=== PATIENT | male | born 1940 | race Caucasian/White ===

== ENCOUNTER 2018-02-24 11:59 | Observation (INO) | payer MEDICARE ==
[2018-02-24] VITALS (10 sets, daily range): BP systolic 103–144; BP diastolic 51–85; Ht 172.7 cm; Wt 78.6 kg
[~2018-02-24] VITALS: Ht 172.7 cm; Wt 78.6 kg
--- NOTE | ~2018-02-24 | HEMODYNAMI ---
PATIENT:ORA CHUA MEDICAL RECORD: [id number] : 44 LOCATION[facility] [id number] ADMISSION DATE: 02/24/18 Generatedon:02/25/20189:46 Patient name: ORA CHUA Patient #: [id number] SSN: : 1940 Date of study: 02/25/2018 Page: Of Hemodynamic Procedure Report Patient Data Patient Demographics Procedure consent was obtained First Name: ORA Gender: Male Last Name: HARSHIL : 1940 Patient #: [id number] Age: 78 year(s) Race: Unknown Additional ID: [id number] Contact details [address]: [address] [place] [address] State: [place] City: [place] Zip code: [address] Past Medical History Allergies: No known allergies Admission Admission Data Admission Date: 02/24/2018 Admission Time: 14:35 Room #: [facility] Procedure Procedure Types Cath Procedure Diagnostic Procedure LHC LHC w/Coronaries Sedation Charges Moderate Sedation up to 15 minutes Peripheral Cath Diagnostic Procedure Maintenance Team Member Peripheral Procedures Four Vessel Arteriogram Procedure Description Procedure Date Procedure Date: 02/25/2018 Procedure Start Time: 9:36 Procedure End Time: 9:46 Procedure Staff Name Function Rangel Mcdermott MD Performing Physician Radha Valenzuela RT Monitor Camelia He RN Nurse Stephania Lezama RT Scrub Renita Kramer RN Desktop Support Technician Procedure Data Cath Procedure Fluoroscopy Diagnostic fluoroscopy Total fluoroscopy Time: 1.9 time: 1.9 min min Diagnostic fluoroscopy Total fluoroscopy dose: 563 dose: 563 mGy mGy Contrast Material Contrast Material Type Amount (ml) Isovue 300 92 Entry Location Entry Primary Successful Side Size Upsize Upsize Entry Closure Succes sful Closure Location (Fr) 1 (Fr) 2 (Fr) Remarks Device Remarks Femoral Right 5 Fr Exoseal artery Estimated blood loss: 5 ml Diagnostic catheters Device Type Used For End Catheter Placement MULTIPACK JL 4.0 5Fr Left Coronary catheter Angiography MULTIPACK 3DRC 5Fr Right Coronary catheter Angiography MULTIPACK 3DRC 5Fr Cervical carotid catheter (common) arteriography MULTIPACK 3DRC 5Fr Cervical carotid catheter (common) arteriography MULTIPACK Pigtail 5 Fr LV Angiography catheter Procedure Complications No complications Procedure Medications Medication Administration Route Dosage 0.9% NaCl I.V. 100 ml/hr Oxygen etCO2 Nasal cannula 2 l/min Lidocaine 2% added to field 20 Heparin Flush Bag added to field 2 bags (1000units/500ml NS) Versed I.V. 2 mg Fentanyl I.V. 50 mcg Versed I.V. 2 mg Fentanyl I.V. 25 mcg Hemodynamics Rest Heart Rate: 65 (bpm) Pressure Samples Time Site Value (mmHg) Purpose Heart Use Rate(bpm) 9:42 LV 108/-6,4 EDP 70 Gradients Valve Time Site Site Mean SEP/DFP Peak To Heart Use 1 2 (mmHg) (sec/min) Peak Rate (mmHg) (bpm) Aortic 9:42 LV AO 71 Snapshots Pre Cath Intra NCS Post Cath Vital Signs Time Heart Resp SPO2 etCO2 NIBP (mmHg) Rhythm Pain Sedation Rate (ipm) (%) (mmHg) Status Level (bpm) 9:18:44 60 13 98 31.1 144/65(102) NSR 0 (11) 10(A) , No pain 9:23:02 69 14 97 23 111/59(82) NSR 0 (11) 10(A) , No pain 9:27:14 70 15 96 17.5 117/59(86) NSR 0 (11) 10(A) , No pain 9:31:28 67 13 97 25.8 115/61(87) NSR 0 (11) 10(A) , No pain 9:35:42 68 10 98 20.7 112/57(86) NSR 0 (11) 9(A) , No pain 9:40:00 68 13 96 40 111/47(69) NSR 0 (11) 9(A) , No pain 9:44:14 67 13 97 41 121/54(90) NSR 0 (11) 9(A) , No pain Medications Time Medication Route Dose Verified Delivered Reason Notes Effe ctiveness by by 9:17:48 0.9% NaCl I.V. 100 Rangel Camelia used for ml/hr [facility] He procedure RN 9:17:56 Oxygen etCO2 2 Rangel Camelia used for Nasal l/min [facility] Neri procedure cannula MD [facility] 9:18:03 Lidocaine 2% added 20ml Rangel Multani for local to vial [facility] anesthetic field MD [facility] 9:18:07 Heparin Flush added 2 Rangel Multani used for Bag to bags [facility] procedure (1000units/500ml field MD [facility] NS) 9:27:49 Versed I.V. 2 mg Rangel Garsiaa for [facility] sedation MD [facility] 9:27:56 Fentanyl I.V. 50 Rangel Denise for mcg [facility] He sedation RN 9:35:30 Versed I.V. 2 mg Rangel Denise for [facility] sedation MD [facility] 9:35:35 Fentanyl I.V. 25 Rangel Denise for [facility] He sedation MD SANFORDsupply tech Log Time Note 9:05:44 Radha Valenzuela RT(R) sent for patient. Start room use. 9:06:40 Time tracking: Regular hours (M-F 7:00 - 5:00) 9:06:44 Plan of Care:Hemodynamics will remain stable., Cardiac rhythm will remain stable., Comfort level will be maintained., Respiratory function will remain adequate., Patient/ family verbilizes understanding of procedure., Procedure tolerated without complication., Recovers from procedure without complications.. 9:13:02 Patient received from PCU to CCL 1 Alert and oriented. Tansferred to table in Supine position. 9:13:03 Warm blankets applied, and natalia hugger turned on for patient comfort. 9:13:04 Correct patient and procedure confirmed by team. 9:13:05 Signed procedure consent form obtained from patient. 9:13:06 ECG and BP/O2 sat monitors applied to patient. 9:13:06 Full Disclosure recording started 9:17:31 Vital chart was started 9:17:48 0.9% NaCl 100 ml/hr I.V. was administered by Camelia He RN; used for procedure; 9:17:56 Oxygen 2 l/min etCO2 Nasal cannula was administered by Camelia He RN; used for procedure; 9:18:03 Lidocaine 2% 20ml vial added to field was administered by Rangel Mcdermott MD; for local anesthetic; 9:18:07 Heparin Flush Bag (1000units/500ml NELSON) 2 bags added to field was administered by Rangel Mcdermott MD; used for procedure; 9:20:56 Baseline sample Acquired. 9:20:59 Rhythm: sinus rhythm 9:21:07 H&P Date Dictated: 02/24/2018 Within 30 days and on chart., ER History on chart.. 9:21:09 Pre-procedure instructions explained to patient. 9:21:10 Pre-op teaching completed and patient verbalized understanding. 9:21:11 Family in patients room. 9:21:13 Patient NPO since Midnight. 9:21:20 Patient allergic to No known allergies 9:21:22 Is the patient allergic to Iodine/contrast media? No. 9:21:25 Is patient on blood thinner?Yes 9:21:27 ACC The patient was administered the following blood thiners within the last 24 hours: ACCPlavix 9:21:47 Patient diabetic? No. 9:21:50 Previous problem with sedation/anesthesia? No ? 9:21:52 Snore? Yes 9:21:52 Sleep apnea? Yes 9:21:54 Deviated septum? No 9:21:54 Opens mouth fully? Yes 9:21:55 Sticks out tongue? Yes 9:21:57 Airway obstruction? No ? 9:21:59 Dentures? Yes IN 9:24:25 Pre procedure: right dorsailis pedis pulse 2+ Normal; easily identifiable; not easily obliterated 9:24:27 Patient pain scale 0/10 ?. 9:24:36 IV patent on arrival in left forearm with 0.9% NaCl at O. 9:24:38 Lab results completed and on chart. 9:24:43 Right groin area was prepped with chlora-prep and draped in sterile fashion 9:24:44 Alarms reviewed by R. N. 9:24:45 Sharps counted by scrub and verified by R.N. 9:24:50 Use device set Femoral Dx 9:24:51 ACIST Syringe (44387) opened to sterile field. 9:24:52 Bag Decanter () opened to sterile field. 9:24:52 Medline Cath Pack ([id number]) opened to sterile field. 9:24:53 DIAGNOSTIC WIRE .035 260cm J wire (007121) opened to sterile field. 9:24:54 ACIST Hand Control (62130) opened to sterile field. 9:24:54 ACIST Manifold (19275) opened to sterile field. 9:24:55 DIAGNOSTIC Multipack 5Fr catheter set ([id number]) opened to sterile field. 9:24:55 Tegaderm 4 x 4 (1626W) opened to sterile field. 9:24:56 SHEATH 5FR Hampton ([id number]) opened to sterile field. 9:25:37 Final Timeout: patient, procedure, and site verified with staff and physician. All members of the team are in agreement. 9:25:38 Right groin site verified by team. 9:25:41 Physical assessment completed. ASA score P 2 - A patient with mild systemic disease as per aRngel Mcdermott MD. ::44 Sedation plan: IV Moderate Sedation Medication:Versed, Fentanyl 9:27:49 Versed 2 mg I.V. was administered by Camelia He RN; for sedation; 9:27:56 Fentanyl 50 mcg I.V. was administered by Camelia He RN; for sedation; 9:35:30 Versed 2 mg I.V. was administered by Camelia He RN; for sedation; 9:35:35 Fentanyl 25 mcg I.V. was administered by Camelia He RN; for sedation; 9:36:00 Procedure started. 9:36:03 Local anesthetic to right femoral artery with Lidocaine 2% by Rangel Mcdermott MD.INITIAL ACCESS ONLY 9:36:25 A 5 Fr sheath was inserted into the Right Femoral artery 9:36:47 A MULTIPACK JL 4.0 5Fr catheter was advanced over the wire and used for Left Coronary Angiography. 9:38:32 Catheter removed. 9:39:16 A MULTIPACK 3DRC 5Fr catheter was advanced over the wire and used for Right Coronary Angiography. 9:39:58 A MULTIPACK 3DRC 5Fr catheter was advanced over the wire and used for Cervical carotid (common) arteriography. left 9:40:37 A MULTIPACK 3DRC 5Fr catheter was advanced over the wire and used for Cervical carotid (common) arteriography.right 9:40:44 Catheter removed. 9:40:51 A MULTIPACK Pigtail 5 Fr catheter was advanced over the wire and used for LV Angiography. 9:42:06 LV gram done using LEA 9:42:11 EF : 50 % 9:42:14 Injector settings: Ml/sec: 10, Volume: 20, 9:42:21 Catheter removed. 9:42:23 EXOSEAL 5Fr (EX500) opened to sterile field. 9:42:33 Sheath removed intact; hemostasis achieved with Exoseal to the Right Femoral artery. 9:42:35 Procedure ended.(Physican Out) 9:42:47 Fluoroscopy time 01.90 minutes. 9:42:51 Flurop Dose total: 563 9:42:51 Fluoroscopy dose: 563 mGy 9:42:54 Contrast amount:Isovue 300 92ml. 9:42:56 Sharps counted by scrub and verified by R.N. 9:42:57 Insertion/operative site no bleeding no hematoma. 9:43:00 Post-op/insertion site Right Femoral artery dressed using a 4 x 4 and Tegaderm. 9:43:03 Post right femoral artery:stable, clean and dry 9:43:14 Post Procedure Pulses reassessed and unchanged 9:43:17 Post-procedure physical assessment completed. ASA score P 2 - A patient with mild systemic disease as per Rangel Mcdermott MD. 9:43:19 Post procedure rhythm: unchanged. 9:43:22 Estimated blood loss: 5 ml 9:43:25 Post procedure instruction explained to patient.Patient verbalizes understanding. 9:43:25 Patient needs reinforcement of post procedure teaching. 9:43:38 Procedure type changed to Cath procedure, Diagnostic procedure, LHC, LHC w/Coronaries, Sedation Charges, Moderate Sedation up to 15 minutes, Peripheral Cath Diagnostic Procedure, Maintenance Team Member Peripheral Procedures, Four Vessel Arteriogram 9:43:42 Procedure Complication : No complications 9:43:45 See physician's report for complete and final results. 9:44:03 Procedure and supply charges have been captured, reviewed, submitted and are correct. 9:46:10 Vital chart was stopped 9:46:13 Report given to PCU. 9:46:21 Report given to Pre/Post Procedure Room. 9:46:27 Patient transfered to Pre/Post Procedure Room with Stretcher. 9:46:30 Procedure ended. 9:46:30 Full Disclosure recording stopped 9:46:33 End room use (Document Last) Device Usage Item Name Manufacture Quantity Catalog Hospital Part Current Minimal L ot# / Number Charge Number Stock Stock Serial# Code ACIST [facility] 1 65738 780175 163717 915362 20 Syringe Medical (87441) Systems Inc Bag Microtek 1 2001S 272980 22845 466533 5 Decanter Medical Inc. () Medline Medline 1 [id number] 423174 27639 049393 5 Cath Pack ([id number]) DIAGNOSTIC [facility] 1 995609 843981 709245 435398 30 WIRE .035 260cm J wire (723718) ACIST Hand Acist 1 93818 670645 583802 127032 5 Control Medical (00803) Systems Inc ACIST Acist 1 32782 590595 309069 607185 5 Manifold Medical (84658) Systems Inc DIAGNOSTIC Cardinal 1 [id number] 537015 01529 142648 30 Multipack Health 5Fr catheter set (BU1741) Tegaderm 4 3M 1 1626W 151696 576297 609704 5 x 4 (1626W) SHEATH 5FR Terumo 1 DAD052 933884 106732 311045 5 Hampton (OPU389) MULTIPACK Cardinal 1 593728 5 JL 4.0 5Fr Health catheter MULTIPACK Cardinal 1 350379 5 3DRC 5Fr Health catheter MULTIPACK Cardinal 1 276695 5 Pigtail 5 Health Fr catheter EXOSEAL 5Fr Cardinal 1 EX500 278754 729908 074312 10 (EX500) Health Signature Audit [place] Stage Time Signature Unsigned Intra-Procedure 02/25/2018 Stephania 9:46:51 AM Counts RT(R) Signatures Monitor : Radha Valenzuela RT Signature : Date : Time : [facility] [address] [facility] [place] [address]
[2018-02-24 12:20] LABS: BASOPHILS 0.2 % (0-2); EOSINOPHILS 2.4 % (0-7); HEMATOCRIT 41.7 % (42.0-54.0); HEMOGLOBIN 14.8 g/dL (13.5-17.5); IMMATURE GRANULOCYTES 0.2 % (0-5); LYMPHOCYTES 7.9 % (15-50); MCH 31.9 pg (26.0-34.0); MCHC 35.5 g/dL (31.0-37.0); MCV 89.9 fL (80.0-100.0); MEAN PLATELET VOLUME 9.6 fL (7.4-10.4); MONOCYTES 6.1 % (2-11); NEUTROPHILS 83.2 % (40-80); PLATELET COUNT 166 10x3/uL (130-400); RBC 4.64 10x6/uL (4.20-6.10); RDW 12.7 % (11.5-14.5); WBC 10.7 10x3/uL (4.8-10.8)
[2018-02-24 12:47] LABS: ALBUMIN 3.3 g/dL (3.4-5.0); ALKALINE PHOSPHATASE 116 U/L (46-116); ALT (SGPT) 18 U/L (10-68); BILIRUBIN - TOTAL 1.27 mg/dL (0.2-1.3); CALC OSMOLALITY 282 mosm/kg (275-300); CALCIUM 9.3 mg/dL (8.5-10.1); CARBON DIOXIDE 28.6 mmol/L (21.0-32.0); CHLORIDE - SERUM 104 mmol/L (98-107); CREATININE - SERUM 0.9 mg/dL (0.6-1.3); GLUCOSE 165 mg/dL (74-106); POTASSIUM - SERUM 4.2 mmol/L (3.5-5.1); PROTEIN - SERUM 7.2 g/dL (6.4-8.2); SODIUM 138 mmol/L (136-145); UREA NITROGEN 22 mg/dL (7-18); eGFR NON AFRICAN AMERICAN 87 mL/min (90-120)
[2018-02-24 12:51] LABS: CKMB 1.1 U/L (0.0-3.6); CREATINE KINASE 72 UL (21-232); TROPONIN-I 0.023 ng/mL (0.000-0.060)
--- NOTE | 2018-02-24 12:52 | NUR ---
PATIENT C/O PAIN IN HIS UPPER BACK DESCRIBED SHARP. PATIENT STATES AFTER HE VOMITED HIS STOMACH FELT BETTER. DENIES CP AT THIS TIME.
--- NOTE | 2018-02-24 12:54 | NUR ---
PATIENT REPORTS CP AT THIS TIME. STATES, "THE CHEST PAIN HAS COME BACK, IT FEELS LIKE PRESSURE." EDP NOTIFIED.
--- NOTE | 2018-02-24 13:30 | NUR ---
PATIENT AWAKE AND ALERT, COLOR WNL FOR RACE, RESPIRATIONS EVEN AND UNLABORED. ASSISTED TO HOB, PILLOW, AND BLANKET GIVEN.
--- NOTE | 2018-02-24 14:30 | NUR ---
PATIENT AWAKE AND ALERT. NO NEEDS NOTED. UPDATED ON PLAN OF CARE AND DELAYS IN CARE. WILL CONTINUE TO MONITOR.
--- NOTE | 2018-02-24 15:30 | NUR ---
PATIENT AWAKE AND ALERT. DIMMED LIGHTS FOR COMFORT. NO NEEDS NOTED. UPDATED ON PLAN OF CARE AND DELAYS IN CARE.
--- NOTE | 2018-02-24 16:30 | NUR ---
PATIENT AWAKE AND ALERT, WATCHING TV. NO NEEDS NOTED WILL CONTINUE TO MONITOR.
[2018-02-24 17:09] LABS: CREATINE KINASE 50 UL (21-232); TROPONIN-I 0.016 ng/mL (0.000-0.060)
--- NOTE | 2018-02-24 17:22 | NUR ---
PATIENT GIVEN DIET TRAY, NO NEEDS NOTED. WILL CONTINUE TO MONITOR.
--- NOTE | 2018-02-24 18:30 | NUR ---
PATIENT SITTING THE SIDE OF THE BED EATING [employer] ELLIOTT THAT HIS FAMILY BROUGHT HIM. HE IS AWAKE AND ALERT, NO NEEDS NOTED. UPDATED ON PLAN OF CARE AND ROOM STATUS. WILL CONTINUE TO MONITOR.
--- NOTE | 2018-02-24 19:52 | NUR ---
ROOM READY AT 1950
[2018-02-24] MEDS ORDERED: PLAVIX75 MG PO (20:44)
[2018-02-24] MEDS ORDERED: LEVOXYL200 MCG PO (20:45)
[2018-02-24] MEDS ORDERED: LISINOPRIL10 MG PO (20:45)
[2018-02-24] MEDS ORDERED: BAYER CHEWABLE81 MG PO (20:46)
[2018-02-24 23:00] LABS: CREATINE KINASE 48 UL (21-232); TROPONIN-I 0.029 ng/mL (0.000-0.060)
--- NOTE | 2018-02-24 23:34 | NUR ---
PT ARRIVED VIA W/C FROM ER AT 2000 HRS. NO DISTRESS NOTED. ADMISSION ASSESSMENT, HISTORY AND HOME MED LIST COMPLETED BY 2100 HRS. VSS. SR PER CM HR 88. O2 2LNC. IV TO LAC SL. ALERT AND ORIENTED TO PERSON, PLACE AND TIME. PT CURRENTLY RESTING WITH EYES CLOSED. RESP EVEN AND REGULAR. SR UP X2, CALL LIGHT WITHIN REACH.
--- NOTE | 2018-02-25 02:10 | NUR ---
PT RESTING WITH EYES CLOSED. RESP EVEN AND REGULAR. SR UPX2, CALL LIGHT WITHIN REACH.
[2018-02-25 03:49] VITALS: BP 114/49
--- NOTE | 2018-02-25 04:25 | NUR ---
PT RESTING WITH EYES CLOSED. RESP EVEN AND REGULAR. SR UP X2, CALL LIGHT WITHIN REACH.
[2018-02-25] MEDS ORDERED: NITROSTAT0.4 MG SL (05:53)
[2018-02-25 06:34] LABS: CKMB 0.4 U/L (0.0-3.6); CREATINE KINASE 37 UL (21-232); TROPONIN-I 0.025 ng/mL (0.000-0.060)
--- NOTE | 2018-02-25 06:45 | NUR ---
VSS THROUGHOUT NIGHT. SR PER CM. PT DENIED ANY DISCOMFORT. NEEDS MET; WILL CONTINUE TO MONITOR.
[2018-02-25 08:01] VITALS: BP 115/50
[2018-02-25 08:43] LABS: HEMATOCRIT 36.8 % (42.0-54.0); HEMOGLOBIN 12.8 g/dL (13.5-17.5); MCH 31.3 pg (26.0-34.0); MCHC 34.8 g/dL (31.0-37.0); MEAN PLATELET VOLUME 9.7 fL (7.4-10.4); PLATELET COUNT 150 10x3/uL (130-400); RBC 4.09 10x6/uL (4.20-6.10); RDW 12.6 % (11.5-14.5)
[2018-02-25 08:48] LABS: CALC OSMOLALITY 284 mosm/kg (275-300); CALCIUM 8.6 mg/dL (8.5-10.1); CARBON DIOXIDE 24.3 mmol/L (21.0-32.0); CHLORIDE - SERUM 108 mmol/L (98-107); POTASSIUM - SERUM 4.3 mmol/L (3.5-5.1); SODIUM 141 mmol/L (136-145); UREA NITROGEN 25 mg/dL (7-18); eGFR NON AFRICAN AMERICAN 77 mL/min (90-120)
[2018-02-25 08:49] LABS: GLUCOSE 101 mg/dL (74-106)
[2018-02-25 09:05] LABS: WBC 6.8 10x3/uL (4.8-10.8)
--- NOTE | 2018-02-25 09:18 | NUR ---
CONSENTS SIGNED. PRE-OPS GIVEN. TO MAILROOM COURIER BY BED.
[2018-02-25 09:36] LABS: EOSINOPHILS 3 % (0-7); LYMPHOCYTES 13 % (15-50); MONOCYTES 8 % (2-11); NEUTROPHILS 73 % (40-80); PLATELET ESTIMATE NORMAL
--- NOTE | 2018-02-25 10:13 | NUR ---
HOB IS FLAT, PT SLEEPING, RESP WITH EASE ON O2 AT 2LPM VIA NC. NSR, RATE IS 66, BP IS 92/48. DRESSING TO RIGHT GROIN IS CDI, AREA IS SOFT AND NONTENDER. PEDAL PULSES PALPABLE. CALL LIGHT IN REACH, NO FAMILY AT BEDSIDE.
--- NOTE | 2018-02-25 10:24 | MORECARE ---
CASE MANAGEMENT DISCHARGE SUMMARY PATIENT: ORA CHUA UNIT: [id number] ADM DATE: 02/24/18 AGE: 78 : 42 SEX: M ROOM/BED: D.2117 AUTHOR: LUIS ALFREDO SCHAFER PHYSICIAN: REFERRING PHYSICIAN: FLYNN EISENBERG MD DATE OF SERVICE: 02/25/18 Discharge Plan Patient Name: ORA CHUA [facility] [facility] 1940 Planned Disposition: Home Anticipated Discharge Date: 02/25/18 Discharge Date: Expected LOS: 1 Initial Reviewer: [email or web address] Initial Review Date: 02/25/2018 Generated: 02/25/18 11:23 am Patient Name: ORA CHUA Page [phone] at 1024 All edits/amendments must be made on the electronic document DICTATION DATE: 02/25/18 1023 INSURANCE BILLER: LILA 02/25/18 1023 RPT#: [id number] DC DATE: STATUS: ADM IN [facility] [address] [place] [address] END OF REPORT
--- NOTE | 2018-02-25 10:51 | NUR ---
1020 PT AWAKE, DENIES ANY C/O. DRESSING CDI RIGHT GROIN, AREA IS SOFT AND NONTENDER, PEDAL PULSES PALPABLE. HOB IS FLAT. 1050 ROHINI PO FLUIDS WITH NO C/O. DRESSING TO RIGHT GROIN IS CDI, AREA IS SOFT AND NONTENDER. PEDAL PULSES PALPABLE. PT DENIES ANY C/O. CALL LIGHT IN REACH,
--- NOTE | 2018-02-25 11:06 | NUR ---
DRESSING CDI, PEDAL PULSES PALPBLE. PT IS ALERT AND DENIES ANY C/O. ROHINI PO FLUIDS WITH NO NAUSEA. HOB IS FLAT. CALL LIGHT IN REACH.
--- NOTE | 2018-02-25 11:36 | NUR ---
HOB ELEVATED 30 DEGREES, PO FLUIDS AT BEDSIDE. DRESSING IS CDI TO RIGHT GROIN, AREA IS SOFT AND NONTENDER. PEDAL PULSES PALPABLE. PT DENIES ANY C/O. CALL LIGHT IN REACH.
--- NOTE | 2018-02-25 11:50 | NUR ---
DRESSING CDI TO RIGHT GROIN, AREA IS SOFT AND NONTENDER. PEDAL PULSES PALPABLE. VSS. HOB FULLY ELEVATED. SANDWICH SERVED.
--- NOTE | 2018-02-25 12:20 | NUR ---
PT HAS ROHINI SANDWCIH WITH NO C/O NAUSEA. DRESSING REMAINS CDI TO RIGHT GROIN. PT REQUESTED URINAL AND WHEN ITH WAS BROUGHT INTO ROOM, PT WAS SEATED ON SIDE OF THE BED URINATING TOWARD TRASHCAN AND ALL OVER THE FLOOR. STATES HE IS UNABLE TO 'HOLD IT'. AREA CLEANED AND PT VOIDED ADDITIONAL 150 CC OF CLEAR YELLOW URINE TO URINAL. PT STATES TO NURSE THAT HE IS UNHAPPY WITH BEING MOVED FROM HIS ROOM ON THE FLOOR TO THE CATH HOLDING AREA AFTER HIS PROCEDURE. STATES IT IS 'BULLSHIT' THAT HIS ROOM WAS CHANGED AND WHEN HE WAS IN THE HOSPITAL FOR STENTS IN [place] HE WAS NOT MOVED TO A DIFFERENT ROOM AND WANTS TO KNOW WHY HE WAS M0VED THIS VISIT. INFORMED LICENSED PROSTHETIST, BRENTON YOUNG OF PT'S CONCERNS AND BRENTON STATES HE WILL SPEAK TO PT.
--- NOTE | 2018-02-25 13:16 | NUR ---
1240 IV DC'D WITH CATH INTACT AND ASSISTED PT WITH DRESSING FOR DC TO HOME. BRENTON YOUNG HERE TO SPEAK WITH PATIENT. PT CALM AND VERBALIZES THAT HE UNDERSTANDS THE ROOM CHANGE AND HAS BEEN HAPPY WITH HIS CARE HERE. 1255 DC INSTRUCTIONS REVIEWED WITH PT AND WRITTEN COPIES PROVIDED. PT DENIES ANY C/O UPON DC. PT'S FAMILY UNABLE TO PICK HIM UP AND THEY CALLED NURSES DESK TO REQUEST CAB BE CALLED FOR PT TRANSPORT HOME. PT ESCORTED TO CAB VIA WC BY NURSE, STATES HAS ALL PERSONAL BELONGINGS AT TIME OF DC TO HOME.
--- NOTE | 2018-02-26 15:01 | HP ---
PATIENT: ORA CHUA MEDICAL RECORD: [id number] ACCOUNT: [id number] LOCATION:[facility] : 44 ADMISSION DATE: 02/24/18 PCP: No PCP HISTORY AND PHYSICAL EXAMINATION HISTORY OF PRESENT ILLNESS: This is a 78-year-old gentleman with a known history of coronary artery disease, status post intervention via Dr. Alvarenga. He has a history of hypertension. Yesterday, at buddhism, had an episode, sounded possible TIA type symptomatology with visual changes, somewhat of amaurosis well as severe chest pain, angina type symptomatology, radiates to the jaw, markedly diaphoretic. We are asked to see him concerning his cardiovascular status. PAST MEDICAL HISTORY: Includes; 1. History of hypertension. 2. Hyperlipidemia. 3. Hypothyroidism, on replacement. ALLERGIES: None known. MEDICATIONS: Typically include Synthroid 200 mcg every day, aspirin 81 every day, lisinopril 10 every day, Plavix 75 every day. SOCIAL HISTORY: Nonsmoker, nondrinker. He usually takes care of all his ADLs. No set exercise program. REVIEW OF SYSTEMS: The patient reports easy bruising but reports no swollen glands. The patient reports no fever, no night sweats, no significant weight gain, no significant weight loss. No significant exercise tolerance. The patient reports no dry eyes, no irritation, no vision change. Patient reports no difficulty hearing and no ear pain. Patient reports no frequent nose bleeds or nose and sinus problems. Patient reports on arm pain on exertion. No shortness of breath while lying down. No history of heart murmur. Patient reports no cough, no wheezing or coughing up blood. Patient reports no abdominal pain, no vomiting. Normal appetite. No diarrhea and not vomiting blood. No nausea and no constipation. Patient reports no incontinence. No difficulty urinating. No hematuria. No increased frequency. Patient reports no muscle aches. No weakness, no arthralgias, no back pain. No swelling of the extremities. Patient reports no abnormal mole, no jaundice, no rashes. Reports no loss of consciousness. No weakness and no numbness. No seizures, dizziness, or headaches. The patient reports no depression, no sleep disturbance, feeling safe in a relationship and no alcohol abuse. Patient reports on fatigue. Reports no runny nose or sinus pressure. No itching, no hives, and no frequent sneezing. PHYSICAL EXAMINATION: GENERAL: Well-developed, well-nourished gentleman appears stated age. VITAL SIGNS: Blood pressure 115/50, pulse 70 and regular. HEENT: Normocephalic, atraumatic. NECK: No JVD or bruit. HEART: Regular, II/ systolic ejection murmur. LUNGS: Good excursion. ABDOMEN: Soft, nontender. EXTREMITIES: Pulse 2+ with no edema. IMPRESSION: Transient ischemic attack type symptomatology as well as HISTORY AND PHYSICAL [id number] ORA CHUA progressive angina. PLAN: Diagnostic angiography, four-vessel in the same setting. TRANSINT:[id number] Voice Confirmation ID: [id number] DOCUMENT ID: [id number] FLYNN EISENBERG MD at 1501 CC: [id number] DICTATION DATE: 02/25/18 0931 SHOE REPAIR SUPERVISOR: 02/25/18 1058 DIS IN 02/25/18 [id number] [place] [address]
--- NOTE | 2018-02-26 15:01 | OP ---
PATIENT NAME: ORA CHUA MEDICAL RECORD: [id number] :44 LOCATION:[facility] ADMISSION DATE:02/24/18 SURGEON: FLYNN EISENBERG MD DATE OF OPERATION: 02/25/2018 PROCEDURES: Left heart catheterization, selective coronary arteriography, four-vessel arteriography, right femoral artery approach. CATHETERS: A 5-Amharic sheath, 5/4 left and right Fiona, 5/4 pig. The procedure was well tolerated. The patient returned to the brewer. Sheath was removed. ExoSeal device was placed. FINDINGS: Left ventriculography in 30-degree LEA view. Normal wall motion, normal systolic function. CORONARY ANATOMY: LEFT MAIN: Left main is free of disease. LAD: Has previous stent, is widely patent. No evidence of thrombosis. No evidence of restenosis. No progression of kaw disease. CIRCUMFLEX: Previously placed stent is widely patent. No evidence of thrombosis. No evidence of progression of kaw disease. RIGHT CORONARY ARTERY: Dominant artery, gives rise to PDA, free of disease. IMPRESSION: The right coronary catheter was then selectively engaged into the right common carotid, shows smooth-walled vessel, free of disease. Right external carotid shows some calcium irregularities, none greater than 10%. Right internal carotid is free of disease. The catheter was just withdrawn to the left common carotid which was selectively engaged, this shows smooth-walled common carotid free of disease. Left external carotid shows luminal irregularities, no stenosis greater than 10%. Left internal carotid shows some calcium deposition with no stenosis greater than 10%. At the end of the procedure, sheath was closed with ExoSeal device. TRANSINT:[id number] Voice Confirmation ID: [id number] DOCUMENT ID: [id number] FLYNN EISENBERG MD at 1501 CC: [id number] DICTATION DATE: 02/25/18 0947 OCCUPATIONAL THERAPIST AIDE: 02/25/18 1303 DIS IN 02/25/18 [place] [id number] [place] [address]
== END 2018-02-25 12:55 | disposition home or self-care (01) ==
LOC: EDBD 11:59 → D.ER 11:59 → D.EDHOLD 13:57 → OBSVTIME 13:57 → D.CLR 13:57 → D.M2 14:35 → D.ER 14:35 → D.CLR 14:35 → D.EDHOLD 14:35 → D.M2 17:42 → D.CLR 02-25 11:41
PROVIDERS: Emergency Medicine; ADMIT Internal Medicine Interventional Cardiology
DX: I25.110 Atherosclerotic heart disease of native coronary artery with unstable angina pectoris (principal); Z95.5 Presence of coronary angioplasty implant and graft; R42 Dizziness and giddiness; H53.9 Unspecified visual disturbance; E03.9 Hypothyroidism, unspecified; E78.5 Hyperlipidemia, unspecified; I10 Essential (primary) hypertension

== ENCOUNTER 2018-07-26 05:33 | Inpatient (IN) | payer MEDICARE ==
[2018-07-26] VITALS (9 sets, daily range): BP systolic 133–167; BP diastolic 51–78; BMI 27.4
[~2018-07-26 05:33] MED LIST: BAYER CHEWABLE81 MG PO; LEVOXYL200 MCG PO; LISINOPRIL10 MG PO; NITROSTAT0.4 MG SL; PLAVIX75 MG PO
[2018-07-26 06:12] LABS: BASOPHILS 0.1 % (0-2); EOSINOPHILS 0.2 % (0-7); HEMATOCRIT 40.3 % (42.0-54.0); HEMOGLOBIN 14.3 g/dL (13.5-17.5); IMMATURE GRANULOCYTES 0.3 % (0-5); LYMPHOCYTES 3.3 % (15-50); MCHC 35.5 g/dL (31.0-37.0); MCV 90.2 fL (80.0-100.0); MEAN PLATELET VOLUME 9.3 fL (7.4-10.4); MONOCYTES 6.5 % (2-11); NEUTROPHILS 89.6 % (40-80); PLATELET COUNT 178 10x3/uL (130-400); RBC 4.47 10x6/uL (4.20-6.10); RDW 13.4 % (11.5-14.5); WBC 9.3 10x3/uL (4.8-10.8)
[2018-07-26 06:18] LABS: ALBUMIN 3.2 g/dL (3.4-5.0); ALKALINE PHOSPHATASE 191 U/L (46-116); ALT (SGPT) 37 U/L (10-68); BILIRUBIN - TOTAL 3.52 mg/dL (0.2-1.3); CALC OSMOLALITY 285 mosm/kg (275-300); CALCIUM 8.8 mg/dL (8.5-10.1); CARBON DIOXIDE 28.7 mmol/L (21.0-32.0); CHLORIDE - SERUM 105 mmol/L (98-107); GLUCOSE 147 mg/dL (74-106); POTASSIUM - SERUM 3.7 mmol/L (3.5-5.1); PROTEIN - SERUM 7.5 g/dL (6.4-8.2); SODIUM 141 mmol/L (136-145); UREA NITROGEN 19 mg/dL (7-18); eGFR NON AFRICAN AMERICAN 77 mL/min (90-120)
[2018-07-26 06:33] LABS: APPEARANCE CLEAR (CLEAR); BILIRUBIN NEGATIVE (NEGATIVE); COLOR DK YELLOW (YELLOW); GLUCOSE NEGATIVE (NEGATIVE); KETONE NEGATIVE (NEGATIVE); NITRITE NEGATIVE (NEGATIVE); PROTEIN TRACE mg/dL (NEGATIVE)
[2018-07-26 06:34] LABS: AMORPHOUS SEDIMENT <1+ /lpf (NONE SEEN); BACTERIA FEW /hpf (NONE SEEN); EPITHELIAL CELLS 0-5 /hpf (0-5); MUCUS <1+ /lpf (NONE SEEN); RED CELLS - URINE RARE /hpf (0-5); WHITE CELLS - URINE 0-5 /hpf (0-5)
[2018-07-26 06:58] LABS: MAGNESIUM - SERUM 1.8 mg/dL (1.8-2.4)
[2018-07-26 06:59] LABS: AMYLASE - SERUM 2890 U/L (25-115)
[2018-07-26 07:10] LABS: LIPASE 58618 U/L (73-393)
--- NOTE | 2018-07-26 07:15 | NUR ---
REPORT RECEIVED FROM TAYLOR [facility] USING SBAR
[2018-07-26 08:54] LABS: CHOL - HDL RATIO 3.3 ratio (2.3-4.9); THYROID STIMULATING HORMONE 0.2 uIU/mL (0.36-3.74)
--- NOTE | 2018-07-26 09:04 | NUR ---
FSBS 89 no insulin given
--- NOTE | 2018-07-26 11:42 | NUR ---
patient coat and shoes taken with him too.
--- NOTE | 2018-07-26 19:00 | NUR ---
REPORT RECEIVED AND CARE OF PT ASSUMED. PT LYING IN LOW CARLISLE'S POSITION WATCHING TV. IV IN RIGHT AC PATENT...BUT OCCLUSION ALARM SOUNDING EVER FEW MINUTES. D5LR INFUISNG AT 125 ML/ HR. PROTONIX INFUSING AT 10 ML / HR. WILL MONITOR FOR NEEDS.
--- NOTE | 2018-07-26 20:20 | NUR ---
SITED ANOTHER IV TO RIGHT HAND AND MOVED IV FLUIDS TO THIS SITE, DUE TO CONSTANT OCCLUSION ALARMS FROM IV IN RIGHT AC. SALINE LOCKED AC IV. WILL CONTINUE TO MONITOR FOR NEEDS.
--- NOTE | 2018-07-26 21:19 | NUR ---
HS MEDICATIONS GIVEN. FSBS 78 THIS CHECK REQUIRING NO COVERAGE PER SLIDING SCALE. PT REMAINS NPO PER ORDER.
[2018-07-27 01:22] VITALS: BP 121/52
[2018-07-27 04:36] LABS: BASOPHILS 0.5 % (0-2); EOSINOPHILS 4.6 % (0-7); HEMATOCRIT 35.5 % (42.0-54.0); HEMOGLOBIN 12.1 g/dL (13.5-17.5); IMMATURE GRANULOCYTES 0.2 % (0-5); LYMPHOCYTES 16.3 % (15-50); MCH 31.4 pg (26.0-34.0); MCHC 34.1 g/dL (31.0-37.0); MEAN PLATELET VOLUME 9.4 fL (7.4-10.4); MONOCYTES 9.8 % (2-11); NEUTROPHILS 68.6 % (40-80); RBC 3.85 10x6/uL (4.20-6.10); RDW 14.1 % (11.5-14.5)
[2018-07-27 04:43] LABS: MCV 92.2 fL (80.0-100.0); WBC 6.1 10x3/uL (4.8-10.8)
[2018-07-27 04:44] LABS: PLATELET COUNT 140 10x3/uL (130-400)
[2018-07-27 04:46] LABS: APTT 30.8 SECONDS (22.8-39.4); INR 1.25 (0.85-1.17); PROTIME 15.1 SECONDS (11.6-15.0)
[2018-07-27 04:59] LABS: ALBUMIN 2.5 g/dL (3.4-5.0); ALKALINE PHOSPHATASE 141 U/L (46-116); ALT (SGPT) 30 U/L (10-68); BILIRUBIN - TOTAL 1.25 mg/dL (0.2-1.3); CALCIUM 8.5 mg/dL (8.5-10.1); CARBON DIOXIDE 27.3 mmol/L (21.0-32.0); CHLORIDE - SERUM 111 mmol/L (98-107); CREATININE - SERUM 0.9 mg/dL (0.6-1.3); LIPASE 991 U/L (73-393); POTASSIUM - SERUM 3.5 mmol/L (3.5-5.1); PROTEIN - SERUM 6.1 g/dL (6.4-8.2); SODIUM 145 mmol/L (136-145); UREA NITROGEN 19 mg/dL (7-18); eGFR NON AFRICAN AMERICAN 87 mL/min (90-120)
[2018-07-27 05:04] LABS: AMYLASE - SERUM 273 U/L (25-115); CALC OSMOLALITY 290 mosm/kg (275-300); GLUCOSE 91 mg/dL (74-106)
[2018-07-27 05:14] VITALS: BP 123/57
[2018-07-27 08:47] VITALS: BP 128/80
[2018-07-27 12:41] VITALS: BP 150/56
[2018-07-27 16:09] LABS: CEA 2.6 ng/mL (0.0-4.7)
--- NOTE | 2018-07-27 16:27 | MORECARE ---
CASE MANAGEMENT DISCHARGE SUMMARY PATIENT: ORA CHUA UNIT: [id number] ADM DATE: 07/26/18 AGE: 78 : 42 SEX: M ROOM/BED: D.2222 AUTHOR: LUIS ALFREDO SCHAFER PHYSICIAN: REFERRING PHYSICIAN: GALEN YOUNG DO DATE OF SERVICE: 07/27/18 Discharge Plan Patient Name: ORA CHUA [facility] [facility] 1940 Planned Disposition: Anticipated Discharge Date: Discharge Date: Expected LOS: Initial Reviewer: [email or web address] Initial Review Date: 07/27/2018 Generated: 07/27/18 5:26 pm DCPIA - Discharge Planning Initial Assessment Updated by [email or web address]: Kathya Mata on 07/27/18 4:26 pm * Is the patient Alert and Oriented? Yes * PCP ID CLINIC AND WANTS TO USE [facility] * Pharmacy [id number] [address] * Preadmission Environment Home with Family * ADLs Independent * Equipment Cane CPAP Walker * List name and contact numbers for known caregivers / representatives who currently or will assist patient after discharge: DAMI AYALA , * Verbal permission to speak to the caregivers and representatives has been obtained from the patient. Yes * Community resources currently utilized None * Additional services required to return to the preadmission environment? No * Can the patient safely return to the preadmission environment? Yes * Has this patient been hospitalized within the prior 30 days at any hospital? No Patient Name: ORA CHUA Page [id number] at 1627 All edits/amendments must be made on the electronic document DICTATION DATE: 07/27/181625 CLAY ARTIST: LILA 07/27/181625 RPT#: [id number] [place] DATE: STATUS: ADM IN [facility] [address] [place] [address] END OF REPORT
--- NOTE | 2018-07-27 16:35 | MORECARE ---
CASE MANAGEMENT DISCHARGE SUMMARY PATIENT: ORA CHUA UNIT: [id number] ADM DATE: 07/26/18 AGE: 78 : 42 SEX: M ROOM/BED: D.2222 AUTHOR: HANH,DOC PHYSICIAN: REFERRING PHYSICIAN: GALEN YOUNG DO DATE OF SERVICE: 07/27/18 Discharge Plan Patient Name: ORA CHUA Facility: [facility]:[place] : 1940 Planned Disposition: Anticipated Discharge Date: Discharge Date: Expected LOS: Initial Reviewer: [email or web address] Initial Review Date: 07/27/2018 Generated: 07/27/18 5:35 pm Comments DCP- Discharge Planning Updated by [email or web address]: Kathya Mata on 07/27/18 3:[address] Patient Name: ORA CHUA Admission Status: ER Accout number: [id number] Admission Date: 07-26-2018 : 1940 Admission Diagnosis: Attending: GALEN YOUNG Current LOS: 1 Anticipated DC Date: Planned Disposition: Primary Insurance: [employer] Discharge Planning Comments: CM MET WITH PATIENT ABOUT DC PLANNING/NEEDS. STATES NO NEEDS AT THIS TIME. PATIENT IS TO HAVE SURGERY SUNDAY. CM WILL FOLLOW AND ASSIST NEEDED WITH DC PLANNING/NEEDS. Erp Business Analyst: Kathya Mata DCPIA - Discharge Planning Initial Assessment Updated by [email or web address]: Kathya Mata on 07/27/18 4:26 pm * Is the patient Alert and Oriented? Yes * PCP CT CLINIC AND WANTS TO USE [facility] * Pharmacy [facility] [address] * Preadmission Environment Home with Family * ADLs Independent * Equipment Cane CPAP Walker * List name and contact numbers for known caregivers / representatives who currently or will assist patient after discharge: DAMI AYALA , * Verbal permission to speak to the caregivers and representatives has been obtained from the patient. Yes * Community resources currently utilized None * Additional services required to return to the preadmission environment? No * Can the patient safely return to the preadmission environment? Yes * Has this patient been hospitalized within the prior 30 days at any hospital? No Last DP export: 07/27/18 3:26 p Patient Name: ORA CHUA Page [id number] at 1635 All edits/amendments must be made on the electronic document DICTATION DATE: 07/27/181633 ENTRY LEVEL PARALEGAL: LILA 07/27/181633 RPT#: [id number] DC DATE: STATUS: ADM IN [facility] [address] [place] [address] END OF REPORT
[2018-07-27 18:07] VITALS: BP 144/67
--- NOTE | 2018-07-27 19:30 | NUR ---
REPORT RECEIVED. RECEIVED PATIENT IN BED. A&O X 4. SPEEC CLEAR. SHIFT ASSESSMENT COMPLETED PER FLOW SHEET WITH NO ACUTE DISTRESS OBSERVED. CALL LIGTH IN REACH. DENIES N/V OR PAIN AT PRESENT.
--- NOTE | 2018-07-27 19:55 | NUR ---
I have reviewed this patient and I concur with the Shift Assessment completed by the Licensed Practical Nurse today this shift.
[2018-07-27 20:00] VITALS: BP 182/75
[2018-07-28] VITALS: BP 178/69
[2018-07-28 04:00] VITALS: BP 168/65
[2018-07-28 05:14] LABS: BASOPHILS 0.3 % (0-2); EOSINOPHILS 7.4 % (0-7); HEMATOCRIT 32.6 % (42.0-54.0); HEMOGLOBIN 11.3 g/dL (13.5-17.5); IMMATURE GRANULOCYTES 0.2 % (0-5); LYMPHOCYTES 17.6 % (15-50); MCH 31.5 pg (26.0-34.0); MCHC 34.7 g/dL (31.0-37.0); MCV 90.8 fL (80.0-100.0); MEAN PLATELET VOLUME 9.6 fL (7.4-10.4); MONOCYTES 8.9 % (2-11); NEUTROPHILS 65.6 % (40-80); PLATELET COUNT 129 10x3/uL (130-400); RBC 3.59 10x6/uL (4.20-6.10); RDW 13.8 % (11.5-14.5); WBC 5.8 10x3/uL (4.8-10.8)
[2018-07-28 05:37] LABS: ALBUMIN 2.3 g/dL (3.4-5.0); ALKALINE PHOSPHATASE 129 U/L (46-116); BILIRUBIN - TOTAL 0.98 mg/dL (0.2-1.3); CALCIUM 8.3 mg/dL (8.5-10.1); CHLORIDE - SERUM 109 mmol/L (98-107); CREATININE - SERUM 0.8 mg/dL (0.6-1.3); GLUCOSE 103 mg/dL (74-106); POTASSIUM - SERUM 3.6 mmol/L (3.5-5.1); PROTEIN - SERUM 5.8 g/dL (6.4-8.2); SODIUM 142 mmol/L (136-145); eGFR NON AFRICAN AMERICAN > 90 mL/min (90-120)
[2018-07-28 05:41] LABS: ALT (SGPT) 21 U/L (10-68); CALC OSMOLALITY 283 mosm/kg (275-300); UREA NITROGEN 14 mg/dL (7-18)
[2018-07-28 08:49] VITALS: BP 154/61
--- NOTE | 2018-07-28 09:00 | NUR ---
PT AAOX4 RESP EVEN ADN NONLABORED NO SIGNS OF DISTRESS NOTED WILL CONTINUE TO MONITOR NO NEEDS EXPRESSED AT THIS TIME CL IN REACH
[2018-07-28 12:39] VITALS: BP 146/70
[2018-07-28 17:55] VITALS: BP 136/79
--- NOTE | 2018-07-28 18:03 | NUR ---
I have reviewed this patient and I concur with the Shift Assessment completed by the Licensed Practical Nurse today this shift.
--- NOTE | 2018-07-28 19:55 | NUR ---
LYING IN BED. ALERT AND ORIENTED X4. RESP EVEN AND NONLABORED. RATES PAIN IN ABD 2. ABD IS DISTENDED AND FIRM. BS ARE ACTIVE X4 QUADS. CHRONOMETER REPAIRER MORPHINE IN USE. D5LR @ 75 MLHR INFUSING IN LT FOREARM WITHOUT DIFF. AMBULATORY. NO DISTRESS. SR ELEVATED X2. CL IN REACH.
[2018-07-28 20:00] VITALS: BP 129/68
--- NOTE | 2018-07-28 21:30 | NUR ---
ADVISED OF NPO AFTER MIDNIGHT STATUS AND PT VERBALIZED UNDERSTANDING.
[2018-07-29] VITALS (7 sets, daily range): BP systolic 130–178; BP diastolic 70–84; BMI 27.3
--- NOTE | 2018-07-29 03:20 | NUR ---
HAS RESTED WELL TONIGHT. LYING IN BED WITH EYES CLOSED. RESP EVEN AND NONLABORED. NO DISTRESS. CL IN REACH.
[2018-07-29 04:15] LABS: BASOPHILS 0.4 % (0-2); EOSINOPHILS 10.8 % (0-7); HEMATOCRIT 32.5 % (42.0-54.0); HEMOGLOBIN 11.5 g/dL (13.5-17.5); IMMATURE GRANULOCYTES 0.4 % (0-5); LYMPHOCYTES 20.5 % (15-50); MCH 31.7 pg (26.0-34.0); MCHC 35.4 g/dL (31.0-37.0); MCV 89.5 fL (80.0-100.0); MEAN PLATELET VOLUME 9.3 fL (7.4-10.4); MONOCYTES 8.3 % (2-11); NEUTROPHILS 59.6 % (40-80); PLATELET COUNT 126 10x3/uL (130-400); RBC 3.63 10x6/uL (4.20-6.10); RDW 13.5 % (11.5-14.5); WBC 4.8 10x3/uL (4.8-10.8)
[2018-07-29 04:39] LABS: ALBUMIN 2.4 g/dL (3.4-5.0); ALKALINE PHOSPHATASE 130 U/L (46-116); ALT (SGPT) 21 U/L (10-68); CALC OSMOLALITY 279 mosm/kg (275-300); CARBON DIOXIDE 25.6 mmol/L (21.0-32.0); CHLORIDE - SERUM 108 mmol/L (98-107); GLUCOSE 91 mg/dL (74-106); LIPASE 211 U/L (73-393); POTASSIUM - SERUM 3.5 mmol/L (3.5-5.1); PROTEIN - SERUM 5.9 g/dL (6.4-8.2); SODIUM 141 mmol/L (136-145); eGFR NON AFRICAN AMERICAN 77 mL/min (90-120)
[2018-07-29 04:52] LABS: AMYLASE - SERUM 47 U/L (25-115); UREA NITROGEN 10 mg/dL (7-18)
[2018-07-29] MEDS ORDERED: HYDROCODON-ACE1 EAC7 PO (15:17)
--- NOTE | 2018-07-29 20:32 | NUR ---
REC'D. IN BED ABD. DISTENDED BUT SOFT AND PALABLE. BOWEL SOUNDS ALL QUAD.FOUR LAP SITES WITH STERI-STRIPS IN PLACE.02 NC AT 6L.NO RESP DIFFICULTY OBSERVED AT PRESENT TIME.STATES NOT PASSING ANY GAS YET WILL CONTINUE TO MONITOR FOR ANY CHGES. AND FOLLOW CURRENT PLAN OF CARE.
--- NOTE | 2018-07-30 03:38 | NUR ---
I have reviewed this patient and I concur with the Shift Assessment completed by the Licensed Practical Nurse today this shift.
[2018-07-30 05:37] LABS: BASOPHILS 0.1 % (0-2); EOSINOPHILS 0 % (0-7); HEMATOCRIT 37.5 % (42.0-54.0); HEMOGLOBIN 13.3 g/dL (13.5-17.5); IMMATURE GRANULOCYTES 0.3 % (0-5); LYMPHOCYTES 3.3 % (15-50); MCHC 35.5 g/dL (31.0-37.0); MCV 90.4 fL (80.0-100.0); MEAN PLATELET VOLUME 9.2 fL (7.4-10.4); MONOCYTES 5.9 % (2-11); NEUTROPHILS 90.4 % (40-80); RBC 4.15 10x6/uL (4.20-6.10); RDW 13.8 % (11.5-14.5)
[2018-07-30 05:52] LABS: PLATELET COUNT 157 10x3/uL (130-400); WBC 14.5 10x3/uL (4.8-10.8)
[2018-07-30 06:04] LABS: ALBUMIN 2.5 g/dL (3.4-5.0); BILIRUBIN - TOTAL 1.5 mg/dL (0.2-1.3); CALCIUM 8.3 mg/dL (8.5-10.1); CARBON DIOXIDE 27.2 mmol/L (21.0-32.0); CREATININE - SERUM 1.1 mg/dL (0.6-1.3); PROTEIN - SERUM 6.4 g/dL (6.4-8.2)
[2018-07-30 06:12] LABS: ANION GAP 11.2 mmol/L (8-16); POTASSIUM - SERUM 4.4 mmol/L (3.5-5.1)
[2018-07-30 06:33] VITALS: BP 157/74
--- NOTE | 2018-07-30 07:30 | NUR ---
SITTING UP AT BEDSIDE. PT IS WITHOUT DISTRESS.CALL LIGHT IN REACH
[2018-07-30] MEDS ORDERED: LEVOFLOXACIN500 MG PO (08:06)
[2018-07-30 08:14] VITALS: BP 146/56
--- NOTE | 2018-07-30 09:09 | NUR ---
ASSESSMENT PER FLOW SHEET. PT IS HAVING SOME SHORTNESS OF BREATH THIS AM. HE STATES HE USES CPAP AT HOME. 02 AT 4 LITERS PER NASAL CANULA WITH SATS 96%. CALL LIGHT IN REACH.
[2018-07-30 09:14] LABS: HEPATITIS C ANTIBODY <0.1 S/CO RAT (0.0-0.9)
[2018-07-30 11:46] VITALS: BP 154/68
--- NOTE | 2018-07-30 12:16 | NUR ---
PT IS WITHOUT DISTRESS.FAMILY TO VISIT. MONITOR FOR NEEDS.
--- NOTE | 2018-07-30 16:15 | NUR ---
AMBULATED IN HALLS WITH ASSIST.
--- NOTE | 2018-07-30 16:44 | NUR ---
IV PULLED OUT WITH CATH TIP INTACT.IV RESITED TO LEFT HAND X1 STICK USING ASEPTIC TECH,22G.
[2018-07-30 17:00] VITALS: BP 183/83
[2018-07-30 20:00] VITALS: BP 140/62
[2018-07-31] VITALS: BP 130/54
--- NOTE | 2018-07-31 02:13 | NUR ---
1930) REC'D. SHIFT CHGE. STANDING AT BEDSIDE USING URINAL STAES HAD MUCH BETTER DAY.ABDOMEN DISTENED SOFT AND PALABLE FOUR LAP SITES WITHOUT REDNESS OR DRAINAGE.HYPOACTIVE BOWEL SOUNDS HYPOACTIVE ALL QUAD.WILL CONTINUE TO MONITOR FOR ANY CHGES AND FOLLOW CURRENT PLAN OF CARE.
--- NOTE | 2018-07-31 03:47 | NUR ---
I have reviewed this patient and I concur with the Shift Assessment completed by the Licensed Practical Nurse today this shift.
[2018-07-31 04:00] VITALS: BP 136/54
[2018-07-31 05:03] LABS: BASOPHILS 0.2 % (0-2); EOSINOPHILS 2.3 % (0-7); HEMATOCRIT 34.6 % (42.0-54.0); HEMOGLOBIN 12.1 g/dL (13.5-17.5); IMMATURE GRANULOCYTES 0.4 % (0-5); LYMPHOCYTES 9.6 % (15-50); MCH 31.8 pg (26.0-34.0); MCV 91.1 fL (80.0-100.0); MEAN PLATELET VOLUME 9.6 fL (7.4-10.4); MONOCYTES 8.8 % (2-11); NEUTROPHILS 78.7 % (40-80); PLATELET COUNT 162 10x3/uL (130-400); RDW 14.2 % (11.5-14.5); WBC 14.6 10x3/uL (4.8-10.8)
[2018-07-31 05:10] LABS: ALBUMIN 2.4 g/dL (3.4-5.0); ANION GAP 11.7 mmol/L (8-16); BILIRUBIN - TOTAL 1.52 mg/dL (0.2-1.3); CALCIUM 8.3 mg/dL (8.5-10.1); CARBON DIOXIDE 26.1 mmol/L (21.0-32.0); CREATININE - SERUM 1.1 mg/dL (0.6-1.3); POTASSIUM - SERUM 3.8 mmol/L (3.5-5.1); PROTEIN - SERUM 6.4 g/dL (6.4-8.2)
[2018-07-31 09:12] VITALS: BP 125/52
[2018-07-31 12:09] VITALS: BP 141/75
--- NOTE | 2018-07-31 12:14 | NUR ---
NUTRITION F/U CHART REVIEWED, PT VISIT. TOLERATING FULL LIQUID DIET WITH GOOD INTAKE RECENT MEALS. WILL CONTINUE TO MONITOR DIET ADVANCEMENT, PO INTAKE. RD FOLLOWING
[2018-07-31 16:22] LABS: APPEARANCE CLEAR (CLEAR); COLOR YELLOW (YELLOW); SPECIFIC GRAVITY 1.015 (1.005-1.020)
[2018-07-31 16:23] LABS: BILIRUBIN NEGATIVE (NEGATIVE); GLUCOSE NEGATIVE (NEGATIVE); KETONE NEGATIVE (NEGATIVE); NITRITE NEGATIVE (NEGATIVE); PROTEIN TRACE mg/dL (NEGATIVE); UROBILINOGEN NORMAL (NORMAL)
[2018-07-31 16:24] VITALS: BP 142/62
--- NOTE | 2018-07-31 19:29 | NUR ---
rec'd in bed eyes closed resp. deep and even. will continue to monitor for any chges. and follow current plan of care.
[2018-07-31 20:56] VITALS: BP 136/61
[2018-08-01 00:47] VITALS: BP 115/41
--- NOTE | 2018-08-01 01:55 | NUR ---
I have reviewed this patient and I concur with the Shift Assessment completed by the Licensed Practical Nurse today this shift.
[2018-08-01 05:23] VITALS: BP 120/56
[2018-08-01 06:49] LABS: BASOPHILS 0.2 % (0-2); EOSINOPHILS 4.6 % (0-7); HEMATOCRIT 30.3 % (42.0-54.0); IMMATURE GRANULOCYTES 0.4 % (0-5); LYMPHOCYTES 13.4 % (15-50); MCH 32.2 pg (26.0-34.0); MCHC 36.3 g/dL (31.0-37.0); MEAN PLATELET VOLUME 9.7 fL (7.4-10.4); MONOCYTES 9.2 % (2-11); NEUTROPHILS 72.2 % (40-80); PLATELET COUNT 144 10x3/uL (130-400); RBC 3.42 10x6/uL (4.20-6.10); RDW 13.9 % (11.5-14.5)
[2018-08-01 06:54] LABS: MCV 88.6 fL (80.0-100.0); WBC 9.5 10x3/uL (4.8-10.8)
[2018-08-01 07:03] LABS: CALC OSMOLALITY 276 mosm/kg (275-300); CALCIUM 8.3 mg/dL (8.5-10.1); CARBON DIOXIDE 26.9 mmol/L (21.0-32.0); CHLORIDE - SERUM 105 mmol/L (98-107); CREATININE - SERUM 0.9 mg/dL (0.6-1.3); GLUCOSE 78 mg/dL (74-106); POTASSIUM - SERUM 3.5 mmol/L (3.5-5.1); SODIUM 139 mmol/L (136-145); UREA NITROGEN 12 mg/dL (7-18); eGFR NON AFRICAN AMERICAN 87 mL/min (90-120)
--- NOTE | 2018-08-01 08:00 | NUR ---
REPORT RECIEVED ASSUMED CARE. PATIENT IN BED WITH IV INTACT. NO COMPLAINTS OR SIGNS OF DISTRESS. CALL LIGHT WITHIN REACH.
[2018-08-01 08:55] VITALS: BP 138/57
--- NOTE | 2018-08-01 09:00 | NUR ---
PATIENT MAD BECAUSE HE WANTS REGULAR FOOD AND WANTS TO GO HOME. HAS HAD 3 BMS TODAY AND MORE THRU OUT THE NIGHT. RASH ON ABDOMEN LOOKS BETTER THAN YESTERDAY. BS WNL. ABD INCISIONS CDI. EXPLAINED TO PATIENT HAD TO WAIT FOR DC FROM PHYSICIAN. VERBALIZED UNDERSTANDING. CALL LIGHT WITHIN REACH.
[2018-08-01] MEDS ORDERED: MIRALAX17 GM PO (09:55)
[2018-08-01 10:16] LABS: ANA REFLEX - DIRECT Negative (Negative)
--- NOTE | 2018-08-01 10:57 | NUR ---
PATIENT RECIEVED DC INSTRUCTIONS. VERBALIZED UNDERSTANDING. NO QUESTIONS AT THIS TIME. IV REMOVED WITH CATH TIP INTACT. TOLERATED REGULAR DIET. WAITING FOR TRANSPORTATION FOR DC.
--- NOTE | 2018-08-01 13:18 | MORECARE ---
CASE MANAGEMENT DISCHARGE SUMMARY PATIENT: ORA CHUA UNIT: [id number] ADM DATE: 07/26/18 AGE: 78 : 42 SEX: M ROOM/BED: D.2222 AUTHOR: HANH,DOC PHYSICIAN: REFERRING PHYSICIAN: GALEN YOUNG DO DATE OF SERVICE: 08/01/18 Discharge Plan Patient Name: ORA CHUA Facility: [facility]:[place] : 1940 Planned Disposition: Home Anticipated Discharge Date: Discharge Date: 08/01/2018 Expected LOS: Initial Reviewer: [email or web address] Initial Review Date: 07/27/2018 Generated: 08/01/18 2:18 pm Comments DCP- Discharge Planning Updated by [email or web address]: Jennifer Hester on 08/01/18 12:[address] Received discharge order and when I went to the room the patient was already gone. His plan was home with no needs. DCP- Discharge Planning Updated by [email or web address]: Kathya Mata on 07/27/18 3:[address] Patient Name: ORA CHUA Admission Status: ER Accout number: [id number] Admission Date: 07-26-2018 : 1940 Admission Diagnosis: Attending: GALEN YOUNG Current LOS: 1 Anticipated DC Date: Planned Disposition: Primary Insurance: [employer] Discharge Planning Comments: CM MET WITH PATIENT ABOUT DC PLANNING/NEEDS. STATES NO NEEDS AT THIS TIME. PATIENT IS TO HAVE SURGERY SUNDAY. CM WILL FOLLOW AND ASSIST NEEDED WITH DC PLANNING/NEEDS. Tourist Guide: Kathya Mata DCPIA - Discharge Planning Initial Assessment Updated by [email or web address]: Kathya Mata on 07/27/18 4:26 pm * Is the patient Alert and Oriented? Yes * [facility] * [facility] [address] * Preadmission Environment Home with Family * ADLs Independent * Equipment Cane CPAP Walker * List name and contact numbers for known caregivers / representatives who currently or will assist patient after discharge: LUCY, DAMI , * Verbal permission to speak to the caregivers and representatives has been obtained from the patient. Yes * Community resources currently utilized None * Additional services required to return to the preadmission environment? No * Can the patient safely return to the preadmission environment? Yes * Has this patient been hospitalized within the prior 30 days at any hospital? No Last DP export: 07/27/18 3:35 p Patient Name: ORA CHUA Page 60496 at 1318 All edits/amendments must be made on the electronic document DICTATION DATE: 08/01/181316 REFRIGERATOR CABINETMAKER: LILA 08/01/181316 RPT#: [id number] DC DATE:08/01/18 STATUS: DIS IN [facility] [address] [place] [address] END OF REPORT
--- NOTE | 2018-08-01 17:04 | MORECARE ---
CASE MANAGEMENT DISCHARGE SUMMARY PATIENT: ORA CHUA UNIT: [id number] ADM DATE: 07/26/18 AGE: 78 : 42 SEX: M ROOM/BED: D.2222 AUTHOR: HANH,DOC PHYSICIAN: REFERRING PHYSICIAN: GALEN YOUNG DO DATE OF SERVICE: 08/01/18 Discharge Plan Patient Name: ORA CHUA Facility: [facility]:[place] : 1940 Planned Disposition: Home Anticipated Discharge Date: Discharge Date: 08/01/2018 Expected LOS: 0 Initial Reviewer: [email or web address] Initial Review Date: 07/27/2018 Generated: 08/01/18 6:03 pm Comments DCP- Discharge Planning Updated by [email or web address]: Jennifer Hester on 08/01/18 12:[address] Received discharge order and when I went to the room the patient was already gone. His plan was home with no needs. DCP- Discharge Planning Updated by [email or web address]: Kathya Mata on 07/27/18 3:[address] Patient Name: ORA CHUA Admission Status: ER Accout number: [id number] Admission Date: 07-26-2018 : 1940 Admission Diagnosis: Attending: GALEN YOUNG Current LOS: 1 Anticipated DC Date: Planned Disposition: Primary Insurance: [employer] Discharge Planning Comments: CM MET WITH PATIENT ABOUT DC PLANNING/NEEDS. STATES NO NEEDS AT THIS TIME. PATIENT IS TO HAVE SURGERY SUNDAY. CM WILL FOLLOW AND ASSIST NEEDED WITH DC PLANNING/NEEDS. Pumping Station Engineer: Kathya Mata DCPIA - Discharge Planning Initial Assessment Updated by [email or web address]: Kathya Mata on 07/27/18 4:26 pm * Is the patient Alert and Oriented? Yes * PCP [place] [facility] AND WANTS TO USE [facility] * Pharmacy [facility] ON [address] * Preadmission Environment Home with Family * ADLs Independent * Equipment Cane CPAP Walker * List name and contact numbers for known caregivers / representatives who currently or will assist patient after discharge: LUCY, DAMI , * Verbal permission to speak to the caregivers and representatives has been obtained from the patient. Yes * Community resources currently utilized None * Additional services required to return to the preadmission environment? No * Can the patient safely return to the preadmission environment? Yes * Has this patient been hospitalized within the prior 30 days at any hospital? No Last DP export: 08/01/18 12:18 p Patient Name: ORA CHUA Page 93196 at 1704 All edits/amendments must be made on the electronic document DICTATION DATE: 08/01/181702 PRODUCT ASSEMBLER: LILA 08/01/181702 RPT#: [id number] DC DATE:08/01/18 STATUS: DIS IN [facility] [address] [place] [address] END OF REPORT
[2018-08-02 15:12] LABS: MITOCHONDRIAL ANTIBODY <20.0 Units (0.0-20.0); SMOOTH MUSCLE ABS (ACTIN) 6 Units (0-19)
== END 2018-08-01 12:15 | disposition home or self-care (01) | DRG 418 ==
LOC: D.ER 05:33 → D.MS 09:38
PROVIDERS: Emergency Medicine; Family Medicine; Internal Medicine Gastroenterology; Internal Medicine Nephrology; Surgery; ADMIT Family Medicine; ATTEND Family Medicine
PROC: 0FT44ZZ Resection of Gallbladder, Percutaneous Endoscopic Approach (ICD-10-PCS; principal; 2018-07-29 14:45)
DX: K85.10 Biliary acute pancreatitis without necrosis or infection (principal); K76.6 Portal hypertension; I50.32 Chronic diastolic (congestive) heart failure; K56.7 Ileus, unspecified; K74.60 Unspecified cirrhosis of liver; I11.0 Hypertensive heart disease with heart failure; I25.10 Atherosclerotic heart disease of native coronary artery without angina pectoris; K74.69 Other cirrhosis of liver; D64.9 Anemia, unspecified; J44.9 Chronic obstructive pulmonary disease, unspecified; K80.20 Calculus of gallbladder without cholecystitis without obstruction

== ENCOUNTER 2018-08-04 20:54 | Emergency (ER) | payer MEDICARE ==
[~2018-08-04] VITALS: Ht 172.7 cm; Wt 85.9 kg
[~2018-08-04 20:54] MED LIST changes: +HYDROCODON-ACE1 EAC7 PO; +LEVOFLOXACIN500 MG PO; +MIRALAX17 GM PO
[2018-08-04 21:01] VITALS: Ht 172.7 cm; Wt 85.9 kg
[2018-08-04 21:54] LABS: BASOPHILS 0.3 % (0-2); EOSINOPHILS 5.3 % (0-7); HEMATOCRIT 34.9 % (42.0-54.0); HEMOGLOBIN 12.4 g/dL (13.5-17.5); IMMATURE GRANULOCYTES 1.8 % (0-5); LYMPHOCYTES 18.3 % (15-50); MCH 31.6 pg (26.0-34.0); MCHC 35.5 g/dL (31.0-37.0); MEAN PLATELET VOLUME 9.5 fL (7.4-10.4); MONOCYTES 8.1 % (2-11); NEUTROPHILS 66.2 % (40-80); RBC 3.92 10x6/uL (4.20-6.10); WBC 8.8 10x3/uL (4.8-10.8)
[2018-08-04 21:55] LABS: PLATELET COUNT 242 10x3/uL (130-400)
[2018-08-04 22:09] LABS: ALBUMIN 2.5 g/dL (3.4-5.0); ALKALINE PHOSPHATASE 140 U/L (46-116); ALT (SGPT) 20 U/L (10-68); BILIRUBIN - TOTAL 0.92 mg/dL (0.2-1.3); CALC OSMOLALITY 275 mosm/kg (275-300); CALCIUM 8.5 mg/dL (8.5-10.1); CARBON DIOXIDE 28.3 mmol/L (21.0-32.0); CHLORIDE - SERUM 103 mmol/L (98-107); GLUCOSE 85 mg/dL (74-106); POTASSIUM - SERUM 3.6 mmol/L (3.5-5.1); PROTEIN - SERUM 6.5 g/dL (6.4-8.2); SODIUM 139 mmol/L (136-145); UREA NITROGEN 9 mg/dL (7-18); eGFR NON AFRICAN AMERICAN 77 mL/min (90-120)
[2018-08-04 22:17] LABS: AMYLASE - SERUM 70 U/L (25-115); CREATINE KINASE 42 UL (21-232); LIPASE 375 U/L (73-393); PRO BNP 344 pg/mL (0-450); TROPONIN-I 0.018 ng/mL (0.000-0.060)
[2018-08-05 00:15] VITALS: BP 139/80
== END 2018-08-05 00:15 | disposition home or self-care (01) ==
LOC: D.ER 20:54
PROVIDERS: Family Medicine
DX: G89.18 Other acute postprocedural pain (principal); R10.9 Unspecified abdominal pain; I11.0 Hypertensive heart disease with heart failure; I50.9 Heart failure, unspecified; J44.9 Chronic obstructive pulmonary disease, unspecified

== ENCOUNTER 2018-08-07 12:52 | Emergency (ER) | payer MEDICARE ==
[~2018-08-07] VITALS: Ht 172.7 cm; Wt 86.4 kg
[2018-08-07 12:54] VITALS: Ht 172.7 cm; Wt 86.4 kg
[2018-08-07 14:22] LABS: BASOPHILS 0.5 % (0-2); EOSINOPHILS 6.1 % (0-7); HEMATOCRIT 36.1 % (42.0-54.0); HEMOGLOBIN 12.6 g/dL (13.5-17.5); IMMATURE GRANULOCYTES 0.9 % (0-5); LYMPHOCYTES 17.6 % (15-50); MCH 31.4 pg (26.0-34.0); MCHC 34.9 g/dL (31.0-37.0); MEAN PLATELET VOLUME 9.3 fL (7.4-10.4); MONOCYTES 5.9 % (2-11); PLATELET COUNT 228 10x3/uL (130-400); RBC 4.01 10x6/uL (4.20-6.10); RDW 14.1 % (11.5-14.5); WBC 7.9 10x3/uL (4.8-10.8)
[2018-08-07 14:27] LABS: APTT 29.8 SECONDS (22.8-39.4); INR 1.16 (0.85-1.17); PROTIME 14.3 SECONDS (11.6-15.0)
[2018-08-07 14:30] LABS: ALKALINE PHOSPHATASE 147 U/L (46-116); ALT (SGPT) 22 U/L (10-68); BILIRUBIN - TOTAL 0.99 mg/dL (0.2-1.3); CALC OSMOLALITY 276 mosm/kg (275-300); CALCIUM 9.3 mg/dL (8.5-10.1); CARBON DIOXIDE 28.1 mmol/L (21.0-32.0); CHLORIDE - SERUM 104 mmol/L (98-107); CREATININE - SERUM 0.9 mg/dL (0.6-1.3); GLUCOSE 82 mg/dL (74-106); POTASSIUM - SERUM 3.8 mmol/L (3.5-5.1); PROTEIN - SERUM 7.1 g/dL (6.4-8.2); SODIUM 139 mmol/L (136-145); UREA NITROGEN 13 mg/dL (7-18); eGFR NON AFRICAN AMERICAN 87 mL/min (90-120)
[2018-08-07 15:28] VITALS: BP 149/65
[2018-08-07] MEDS ORDERED: MEDROL DOSE PACK4 MG PO (16:08)
[2018-08-07] MEDS ORDERED: VIBRAMYCIN 100100 MG PO (16:08)
== END 2018-08-07 16:29 | disposition home or self-care (01) ==
LOC: D.ER 12:52
PROVIDERS: Family Medicine
DX: R21 Rash and other nonspecific skin eruption (principal); R50.9 Fever, unspecified